=== PATIENT | male | born 1990 | race Caucasian/White ===

== ENCOUNTER 2017-04-23 09:35 | Emergency (ER) | payer OTHER ==
[~2017-04-23] VITALS: Ht 180.3 cm; Wt 72.6 kg
[2017-04-23] MEDS ORDERED: CLONIDINE HCL 0.1 MG TABLET ONE (09:46)
[2017-04-23] MEDS ORDERED: LORAZEPAM 1 MG TABLET ONE (09:46)
[2017-04-23] MEDS ORDERED: LORAZEPAM 1 MG TABLET PO ONE (10:00)
[2017-04-23] MEDS ORDERED: CLONIDINE HCL 0.1 MG TABLET PO ONE (10:00)
[2017-04-23 10:03] VITALS: BP 130/81
== END 2017-04-23 10:05 ==
LOC: ER 09:39
DX: F11.23 Opioid dependence with withdrawal (principal); K62.5 Hemorrhage of anus and rectum
CPT/HCPCS: 99283; A4606 ×2; Z7610 ×2

== ENCOUNTER 2020-12-12 02:06 | Emergency (ER) | payer MEDICAID, OTHER ==
[~2020-12-12] VITALS: Ht 182.9 cm; Wt 74.8 kg
--- NOTE | 2020-12-12 02:50 | NUR ---
pt bibself c/o having an ear bud stuck in left ear. Pt [id number] breathing evenly and unlabored. SKin warm, dry, and intact. Pt states " i fell asleep with my headphone in, and when i woke up to take it out, it fell apart". MD at bedside for nino
--- NOTE | 2020-12-12 03:15 | NUR ---
unable to dislodge earbud from ear. Pt ready for d/c and given instruction to see ENT.
--- NOTE | 2020-12-12 03:36 | NUR ---
Patient discharged to home in stable condition. Written and verbal after care instructions given. Patient verbalizes understanding of instruction. Pt ambulatory with a steady gait
[2020-12-12 03:56] VITALS: BP 125/78
== END 2020-12-12 03:36 | disposition home or self-care (01) ==
LOC: ER 02:06
DX: T16.2XXA Foreign body in left ear, initial encounter (principal); X58.XXXA Exposure to other specified factors, initial encounter; Y93.89 Activity, other specified; Y92.89 Other specified places as the place of occurrence of the external cause; Y99.8 Other external cause status

== ENCOUNTER 2021-12-15 05:08 | Emergency (ER) | payer MEDICAID, OTHER ==
[~2021-12-15] VITALS: Ht 182.9 cm; Wt 81.6 kg
--- NOTE | 2021-12-15 06:10 | NUR ---
BIBS FOR C/O SORETHROAT OVERNIGHT. PT AWAKE AND ALERT BREATHING EVEN AND UNLABORED ALL V/S STABLE.
[2021-12-15] MEDS ORDERED: TETRACAINE/BENZOCAINE/BUTAMBEN 56 GM SPRAY TP ONE ×2 (06:27→06:30)
[2021-12-15] MEDS ORDERED: KETOROLAC TROMETHAMINE INJ 30 MG/ML VIAL IM ONE (06:30)
[2021-12-15] MEDS ORDERED: KETOROLAC TROMETHAMINE 15 MG/ML VIAL ONE (06:34)
[2021-12-15] MEDS ORDERED: PENI500T PO (06:49)
[2021-12-15] MEDS ORDERED: IBUP-1955 PO (06:49)
--- NOTE | 2021-12-15 07:07 | NUR ---
Patient discharged to home in stable condition. Written and verbal after care instructions given. Patient verbalizes understanding of instruction.
[2021-12-15 07:08] VITALS: BP 134/69
== END 2021-12-15 07:08 | disposition home or self-care (01) ==
LOC: ER 05:13
DX: J02.9 Acute pharyngitis, unspecified (principal); Z20.822 Contact with and (suspected) exposure to COVID-19
CPT/HCPCS: 87070; 87880; 96372; 99283; C9803; J1885; U0003; 86403-TC